=== PATIENT | male | born 1945 | race Caucasian/White ===

== ENCOUNTER 2017-02-11 01:07 | Emergency (ER) | payer MEDICARE, OTHER ==
[~2017-02-11 01:07] MED LIST: ALPRAZOLAM0.5 M2 PO; ALPRAZOLAM0.5 M3 PO; AMOXICILLIN500 M PO; ASPIR-LOW81 M1 PO; ASPIRIN325 MG PO; ATORVASTATIN CA10 M1 PO; AZULFIDINE500 M1 PO; BENTYL10 M1 PO; BYSTOLIC5 MG PO; CARVEDILOL6.25 M1 PO; CELEXA40 M2 PO; CEPHALEXIN500 M1 PO; CLARITIN10 M6 PO; COLACE100 M1 PO; COREG12.5 M1 PO; CYCLOBENZAPRINE5 M1 PO; DICYCLOMINE HCL10 M1 PO; DURAGESIC1 EAC4 TOP; DURAGESIC1 PATC TOP; EFFEXOR XR75 M1 PO; EFFEXOR75 MG PO; FENTANYL1 EA10 TOP; FENTANYL1 PATC TOP; FLEXERIL10 MG PO; FLOMAX0.4 M1 PO; HYDROCHLOROTHIA25 M1 PO; HYDROCODONE/APA1 CAP PO; HYDROCODONE/APA1 TAB PO; ISOSORBIDE MONO30 M4 PO; NEOMYC-POLYM-DEX5 ML OP; NITROFURANTOIN100 M PO; NITROGLYCERIN0.4 M2 PO; NITROSTAT0.4 MG/TAB SL; NORCO 10-325 T1 EACH PO; NORVASC10 M1 PO; NORVASC5 M2 PO; PRAVACHOL40 MG PO; PRISTIQ50 MG PO; PROAIR HFA8.5 GM INH; PROVENTIL17 GM IH; SPIRIVA18 MCG IH; STOOL SOFTENER50 M1 PO; SULFASALAZINE500 M1 PO; SYMBICORT 16010.2 GM IH; TAMIFLU75 MG PO; TRIAMTERENE-HC1 EAC1 PO; XANAX1 M1 PO; ZITHROMAX250MG Z-PAK PO; ZOFRAN4 M2 PO; ZOFRAN4 MG PO; ZOFRAN8 M1 PO; ZOFRAN8 MG PO
[2017-02-11 01:30] LABS: BASO % 0.5 % (0-2); EOS % 0.9 % (0-7); EOSINOPHIL ABSOLUTE COUNT 0.1 tho/cmm (0.0-0.7); HCT-HEMATOCRIT 40.3 % (36.0-53.5); HGB-HEMOGLOBIN 13.6 gm/dl (13.5-17.0); IMMATURE GRANULOCYTES ABSOLUTE 0.01 tho/cmm (0-0.03); IMMATURE GRANULOCYTES PERCENT 0.2 % (0-0.3); LYMPH % 41.6 % (20-45); LYMPH ABSOLUTE COUNT 2.7 tho/cmm (0.8-4.5); MCH (MEAN CORPUSCULAR HGB) 31.1 pg (28.0-32.0); MCHC MEAN CORPUSCULAR HGB CONC 33.7 % (32.0-36.0); MCV (MEAN CELL VOLUME) 92.2 fl (82.0-96.0); MEAN PLATELET VOLUME 9.3 cmc (9.4-12.4); MONO % 6.8 % (0-12); MONOCYTE ABSOLUTE COUNT 0.5 tho/cmm (0.0-1.2); NEUTROPHIL ABSOLUTE COUNT 3.3 tho/cmm (1.6-8.0); NEUTROPHIL-AUTOMATED 3.3 tho/cmm (1.6-8.0); PLATELET COUNT 177 tho/cmm (150-450); RED BLOOD COUNT 4.37 mil/cmm (4.40-5.70); RED CELL DISTRIBUTION WIDTH 12.4 % (12.4-16.4); WHITE BLOOD COUNT 6.6 tho/cmm (4.0-10.0)
[2017-02-11 01:49] LABS: ANION GAP 10 mmol/L (0-20); BLOOD UREA NITROGEN 11 mg/dl (6-24); CALCIUM 8.2 mg/dl (8.5-10.5); CARBON DIOXIDE-VENOUS 26 mmol/L (22-32); CHLORIDE 108 mmol/l (96-110); CREATININE 1.04 mg/dl (0.60-1.30); GLUCOSE 108 mg/dL (70-110); POTASSIUM 3.5 mmol/L (3.7-5.1); SODIUM 140 mmol/L (135-145); eGFR VALUE FOR BLACK 84 mL/Min
[2017-03-08] MEDS ORDERED: BENADRYL25 M3 PO (10:59)
[2017-03-08] MEDS ORDERED: PREDNISONE20 M1 PO (12:27)
[2017-03-08] MEDS ORDERED: ZYRTEC10 M7 PO (12:27)
[2017-03-08] MEDS ORDERED: PEPCID40 M1 PO (12:27)
[2017-03-10] MEDS ORDERED: PEPCID20 M1 PO (11:13)
[2017-03-10] MEDS ORDERED: PREDNISONE20 M1 PO (11:13)
== END 2017-02-11 02:30 ==
LOC: EDMED 01:07
PROVIDERS: Emergency Medicine
DX: I20.9 Angina pectoris, unspecified (principal); J44.9 Chronic obstructive pulmonary disease, unspecified; G47.33 Obstructive sleep apnea (adult) (pediatric); Z87.891 Personal history of nicotine dependence; Z79.899 Other long term (current) drug therapy
CPT/HCPCS: J2405; J7030